=== PATIENT | female | born 1980 | race Caucasian/White ===

== ENCOUNTER 2019-08-30 11:38 | Emergency (ER) | payer BC ==
--- NOTE | 2019-08-30 12:51 | UC ---
Throat Pain/Nasal Igor HPI - HPI Summary HPI Summary: 38 y/o female presents to the urgent care c/o nasal congestion, green PND and nasal discharge over ten days. Nasal passages inflamed to the point that she can 't breathe through her nostrils. She went to see her PCP and was prescribed a Medrol dosepok, Flonase, and azelastine nasal spray for viral sinusitis. Patient stated she does get temporary improvement with prescriptions. Left ear pain and now clogged. Patient is interested in an antibiotic. Pain is 4/10 sinus pain, ear pain and ELLIOTT. Pt denies fever, dizziness, SOB, chest pain, abdominal pain, N/V/D. - History of Current Complaint Stated Complaint: SINUS COMPLAINT Time Seen by Provider: 08/30/19 12:49 Hx Obtained From: Patient ?: No Onset/Duration: Gradual Onset, Lasting Days - 10 days, Still Present, Worse Since - 3 days Severity: Moderate Pain Intensity: 5 - sinus pain and ELLIOTT Pain Scale Used: 0-10 Numeric Cough: Nonproductive Associated Signs & Symptoms: Positive: Sinus Discomfort, Nasal Discharge - green , Other - PND and left ear pain. Negative: Wheezing, Fever - Epiglottits Risk Factors Epiglottis Risk Factors: Negative - Allergies/Home Medications Allergies/Adverse Reactions: Allergies Allergy/AdvReac Type Severity Reaction Status Date / Time No Known Allergies Allergy Verified 08/30/19 12:48 Home Medications: Home Medications Azelastine 0.15% NASAL(NF) [Astepro 0.15% NASAL (NF)] 1 spray NASAL BID [History Confirmed 08/30/19] Fluticasone NASAL SPRAY 50MCG* [Flonase NASAL SPRAY 50MCG*] 2 spray BOTH NARES DAILY 08/30/19 [History Confirmed 08/30/19] Levonorgestrel (Iud) [Mirena IUD] 20 mcg IU ONCE 08/30/19 [History Confirmed 04/11] PMH/Surg Hx/FS Hx/Imm Hx Previously Healthy: Yes - Pt denies PMHX - Family History Known Family History: Positive: Hypertension, Diabetes - Social History Occupation: Employed Full-time Lives: With Family Review of Systems All Other Systems Reviewed And Are Negative: Yes Constitutional: Positive: Chills Skin: Positive: Negative Eyes: Positive: Negative ENT: Positive: Ear Ache - left ear pain and pressure, Nasal Discharge - green, Sinus Congestion, Sinus Pain/Tenderness, Other - PND Respiratory: Positive: Cough - dry Cardiovascular: Positive: Negative Gastrointestinal: Positive: Negative Genitourinary: Positive: Negative Motor: Positive: Negative Neurovascular: Positive: Negative Musculoskeletal: Positive: Negative Neurological: Positive: Headache Psychological: Positive: Negative Is Patient Immunocompromised?: No Physical Exam - Summary Physical Exam Summary: Vitals: reviewed General: Well developed, well-nourished female patient with NAD. Head and face: Normocephalic and atraumatic, Positive tenderness over the frontal and maxillary sinuses.. Eyes: PERRLA, EOMI x 2. Normal conjunctiva. No eye discharge. ENT: Ears and TM with normal limits. Nose: edematous and erythematous nasal mucosa with with yellowish discharge and erythematous mucosa. Pharynx with erythema, no exudate. green PND Neck: Supple, no JVD, no carotid bruits and no lymphadenopathy. Lungs: clear, no rales, no rhonchi, no wheezes. CVS: RRR, S1 and S2 present no murmurs or gallops appreciated. Abdomen: soft nontender with positive bowel sounds. Extremities: no edema noted. Neuro: WNL. Skin: warm and dry Triage Information Reviewed: Yes Throat Pain/Nasal Course/Dx - Course Course Of Treatment: 38 y/o female presents to the urgent care c/o nasal congestion, green PND and nasal discharge over ten days. Nasal passages inflamed to the point that she can 't breathe through her nostrils. She went to see her PCP and was prescribed a Medrol dosepok, Flonase, and azelastine nasal spray for viral sinusitis. Patient stated she does get temporary improvement with prescriptions. Left ear pain and now clogged. Patient is interested in an antibiotic. Pain is 4/10 sinus pain, ear pain and ELLIOTT. Pt denies fever, dizziness, SOB, chest pain, abdominal pain, N/V/D. Hx obtained. Pt w/ bacterial sinusitis on examination. Pt with 10 days of symptoms getting worse despite symptomatic treatment. Pt Rx Amoxicillin PO and advised to continue w/ flonase nasal spray. Discharge instructions explained to Pt. Advised to Return to the clinic or PCP if symptoms do not improve.Pt understood and agreed with plan of care. - Differential Dx/Diagnosis Differential Diagnosis/HQI/PQRI: Influenza, Laryngitis, Mononucleosis, Pharyngitis, Sinusitis, Tonsillitis Provider Diagnosis: Acute bacterial sinusitis Discharge ED - Sign-Out/Discharge Documenting (check all that apply): Patient Departure - D/c home All imaging exams completed and their final reports reviewed: No Studies - Discharge Plan Condition: Stable Disposition: HOME Prescriptions: Amoxicillin PO (*) [Amoxicillin 875 MG (*)] 875 mg PO BID #20 tab Patient Education Materials: Sinusitis (ED) Referrals: [facility] [Outside] - 3 Days Additional Instructions: 1- Please increase fluid intake and rest. take full course of antibiotics to avoid resistance. Take yogurts w/ probiotics or Culturelle to protect your GI system 2- Continue using Flonase Nasal spray as directed to help drain fluid. Also buy saline drops to clear sinuses 3-Please f/u w/ your PCP in 3 days if symptoms do not improve for further management and treatment - Billing Disposition and Condition Condition: STABLE Disposition: Home
[2019-08-30 12:52] VITALS: BP 121/89
== END 2019-08-30 13:12 | disposition home or self-care (01) ==
LOC: UCCORT 11:38
DX: J01.90 Acute sinusitis, unspecified (principal); B96.89 Other specified bacterial agents as the cause of diseases classified elsewhere; R09.82 Postnasal drip
CPT/HCPCS: 99202; G0463